=== PATIENT | female | born 1980 | race African-American/Black ===

== ENCOUNTER 2023-04-08 07:05 | Day surgery (SDC) | payer MEDICAID, SELFPAY ==
[2023-04-08] VITALS (12 sets, daily range): BP systolic 105–130; BP diastolic 68–91; PULSE 66–96; RESP 16–18; TEMP 36.2–36.6; O2SAT 100; BMI 37.0
[2023-04-08 07:34] LABS: Internal QC Validated? YES +Cl - CLEAR BKGD; Pregnancy, Urine Negative Negative
[2023-04-08] MEDS: Lactated Ringers 1,000 ML 15 ML IV (07:45)
[2023-04-08 07:48] LABS: Hematocrit 38.2 % (37-47); Hemoglobin 12.6 g/dL (12.0-15.0); Mean Corpuscular Hgb 29.3 pg (27.0-32.0); Mean Corpuscular Volume 88.8 fL (81-99); Mean Platelet Vol. 9.4 fl (6.2-12.0); Platelet Count 302 K/mm3 (150-450); RBC Distribution Width SD 42.4 fl (35.1-43.9)
--- NOTE | 2023-04-08 08:40 | EMB_PTH ---
PATIENT: NIGEL MIMS LOC: [facility] – [place] U#:[id number] AGE/SX: 42/F ROOM: RE04/08/[address]: Dr. Izabela Kenney DO : 1980 BED: DIS: 04/08/2023 SPEC #: [id number] RECD: 04/08/23 09:29 STATUS: ROWENA BETHANY #: [id number] NHI: 04/08/23 08:[address]: Izabela Kenney DEPT: SURGICAL PATHOLOGY RECD BY: Negra Crespo ENTERED: 04/08/23 10:34 SP TYPE: ENDOM BX/C MALCOLM DR: Dr. Alden Ortiz MD Tissues: Endometrium, NOS Procedures: Surgery Specimen Level IV HEADER OPERATION: Hysteroscopy, D & C Symphion, Liletta IUD insertion PRE-OP DIAGNOSIS: Menorrhagia with regular cycle TISSUE SUBMITTED: Endometrial and endocervical curettings MICROSCOPIC DIAGNOSIS Endometrium and endocervix, curettings: Proliferative endometrium with focal glandular breakdown. Chronic endometritis. Fragments of benign endocervix and squamous mucosa. AM:suraj 04/11/2023 MICROSCOPIC DESCRIPTION Slides are reviewed. GROSS DESCRIPTION Received in fixative is one container labeled with the patient's name and designated Endometrial and endocervical curettings. The specimen consists of multiple fragments of hemorrhagic mucoid tissue that in aggregate measure 3.0 x 2.5 x 0.3 cm. The specimen is totally submitted in one cassette. / SJ:suraj 04/08/2023 TC:3 CPT: 30854
[2023-04-08] MEDS: Lidocaine 1% (20 ml mdv) 20 ML Vial (08:47)
[2023-04-08] MEDS: Levonorgestrel IUD (Liletta) 1 EACH INTRA-UTER (09:00)
--- NOTE | 2023-04-08 09:04 | DCINST_ITS ---
Discharge Instructions Diet Discharge Diet: No restrictions Activity Discharge Activity: May Not Drive (for 24 hours after surgery) and May Not Shower (for 24 hours after surgery) May resume sexual activity in: 1-2 weeks (nothing in the vagina and no soaking in water for 1 week) Weight Bearing Status: Weight bearing as tolerated Lifting Restrictions: none Dressing / Incision Call your doctor if you observe: Fever of 101 or Higher, Coldness, Increased Pain, Numbness or Tingling, Change in Color, Inability to urinate, Inability to have a bowel movement, Using more than 1 pad per hour, Shortness of breath, Dizziness, Fainting spells, Swelling in the ankles, Chest pain, Increased palpitations (irregular heartbeat), Calf discomfort and Uncontrolled pain Follow Up Care Please Follow Up With: Izabela Kenney DO When: 4-6 weeks IUD check Test Results: Test results from this visit will be discussed in further detail at your follow- up appointment, if applicable. Discharge Plan Admission Primary Reason for Your Visit: surgery Attending Provider: Izabela Kenney Primary Care Provider: Alden Ortiz Instructions Patient Instructions: Dilation and Curettage Discharge Orders/Prescriptions Prescriptions: Continued ergocalciferol (vitamin D2) 1,250 mcg (50,000 unit) capsule 1,250 mcg PO QWEEK Patient Comments: take 1 capsule by mouth every week phentermine 37.5 mg tablet 37.5 mg PO DAILY Patient Comments: take 1 tablet by mouth once daily topiramate 25 mg tablet 50 mg PO BID Patient Comments: take 2 tablets by mouth twice a day Referrals / Follow Up: Alden Ortiz MD [Primary Care Provider] - Disposition Disposition (needs filled in before D/C Order can be placed): Home, Self Care
--- NOTE | 2023-04-08 09:05 | PCM.OPRPT ---
Problems Associated Problem List Diagnoses (1) Menorrhagia: Report of Operation Date of Procedure: 04/08/23 Pre-Operative Diagnosis: Menorrhagia, endocervical polyp on US, acute blood loss anemia Post-Operative Diagnosis: As above Surgery/Procedure Performed:: Hysteroscopy, D&C, Liletta IUD insertion Description of Surgical Findings:: Enlarged uterine cavity measuring 10 cm in length. Normal bilateral tubal ostia. Normal appearing endometrium. No lesions or polyps noted in the uterine cavity or in the endocervical canal. Upon dilatation of the cervix return of a small amount of polypoid tissue noted, which was sent to pathology for review. Surgeon: Izabela Kenney medical office representative: None Type of Anesthesia: MAC Special Medications: None Specimen's removed: Endometrial and endocervical curettings Drains: None Estimated Blood Loss (mL): < 50 Fluids Replaced: 50 cc fluid deficit Description of Procedure: The patient was taken to the operating room where MAC anesthesia was found to be adequate. She was prepped and draped in the dorsal lithotomy position using yellow fin stirrups. A weighted speculum was placed in the vagina to expose the cervix. A single-tooth tenaculum was placed on the anterior lip of the cervix. 10 cc of 1% lidocaine was injected circumferentially around the cervix. The cervix was serially dilated to accommodate the Symphion hysteroscope. Upon dilation return of a small amount of polypoid tissue was noted, and this was sent to pathology for review. The Symphion hysteroscope was advanced to the fundus of the uterus and distended with normal saline. Bilateral tubal ostia were visualized. The uterine cavity was normal-appearing. Endometrium was normal-appearing. No lesions noted within the uterus. The hysteroscope was then slowly removed through the cervical canal, which was also normal-appearing with no lesions noted. The hysteroscope was then removed. A D&C was performed and pathology was sent for review. The uterus sounded to 10 cm. The Liletta IUD was inserted in usual sterile fashion at the fundus of the uterus and the IUD strings were trimmed to 2 cm in length. All instruments were removed from the vagina. Bleeding was hemostatic. Instrument and sponge counts were correct. A vaginal sweep was performed. The patient was taken to the recovery in stable condition. Grafts/Implants Used: Liletta IUD Procedure Start Time: 08:48 Procedure Stop Time: 09:01 Complications None Admit VTE Documentation VTE Present on Admission: No VTE Mechan Device Prophylaxis: SCD's
== END 2023-04-08 10:29 | disposition home or self-care (01) ==
LOC: SDC 07:08 → AC 07:10
PROVIDERS: PCP Family Medicine; Referring Provider Obstetrics & Gynecology; Visit Provider Obstetrics & Gynecology
PROC: 0UB98ZZ Excision of Uterus, Via Natural or Artificial Opening Endoscopic (ICD-10-PCS; CPT 58558; principal; 2023-04-08 08:25)
DX: N71.1 Chronic inflammatory disease of uterus (principal); N92.0 Excessive and frequent menstruation with regular cycle; N84.1 Polyp of cervix uteri; D62 Acute posthemorrhagic anemia; G43.909 Migraine, unspecified, not intractable, without status migrainosus; Z30.430 Encounter for insertion of intrauterine contraceptive device; Z79.899 Other long term (current) drug therapy
CPT/HCPCS: 58558; 58300; 00952; 81025; 85027; 86850; 86900; 86901; 88305; J7120; J2405